=== PATIENT | female | born 1975 | race American Indian/Alaskan Native ===

== ENCOUNTER 2017-12-25 09:24 | Emergency (ER) | payer OTHER, BC ==
[2017-12-25 09:37] VITALS: BP 137/94; PULSE 110; RESP 18; TEMP 98.7; O2SAT 95; BMI 40.2
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
== END 2017-12-25 10:26 | disposition home or self-care (01) ==
LOC: C.ER 09:24
DX: S13.4XXA Sprain of ligaments of cervical spine, initial encounter (principal); S39.012A Strain of muscle, fascia and tendon of lower back, initial encounter; V43.52XA Car driver injured in collision with other type car in traffic accident, initial encounter; E05.90 Thyrotoxicosis, unspecified without thyrotoxic crisis or storm